=== PATIENT | female | born 1985 | race African-American/Black ===

== ENCOUNTER 2024-03-09 11:43 | Emergency (ER) | payer OTHER, SELFPAY ==
[2024-03-09 12:01] VITALS: BP 135/75; PULSE 76; RESP 20; TEMP 36.4; O2SAT 100; BMI 34.4
[2024-03-09 12:08] VITALS: PULSE 85; O2SAT 97
[2024-03-09 12:09] VITALS: BP 114/66; PULSE 84; O2SAT 98
[2024-03-09 12:30] VITALS: BP 110/61; PULSE 86; O2SAT 98
--- NOTE | 2024-03-09 12:50 | PC.NURSE ---
Patient here in department for allergic reaction to supplements that she took this morning, patient has them in her bag for provider review. Patients respirations are even and unlabored, lung sounds are clear on auscultation, patient reports they have some scratchiness in their throat
[2024-03-09 13:00] VITALS: BP 116/75; PULSE 85; O2SAT 98
[2024-03-09 13:30] VITALS: BP 116/73; PULSE 79; O2SAT 98
--- NOTE | 2024-03-09 14:01 | ED_ITS ---
HPI - Allergic Reaction General Chief complaint: Allergic Reaction Stated complaint: allergic reaction unknown source Time Seen by Provider: 03/09/24 13:40 Source: patient Mode of arrival: Ambulatory History of Present Illness HPI narrative: Patient here for hives on the face arms itching to the back legs and chest. It has now resolved. Patient started a new dietary supplement for weight loss this morning. She went to work and at 9:00 a.m. in the morning today she walked into work and felt chest tightness throat tightness hives itching on the face arms legs back and [place] 50 mg of Benad[place] and sent here. Symptoms now have resolved. Mother at bedside. Never had any previous allergies. I informed her to stop taking these supplements. This is likely the source of allergy reaction this morning. Related Data Previous Rx's Medication Instructions Recorded diphenhydramine HCl 25 mg capsule 25 mg PO Q6H PRN allergic reaction 03/09/24 (Benadryl) #20 caps famotidine 20 mg tablet 20 mg PO BID #14 tabs 03/09/24 methylprednisolone 4 mg tablets in See Rx Instructions PO .COMPLEX 03/09/24 a dose pack (Medrol (Jozef)) #21 ea Allergies Allergy/AdvReac Type Severity Reaction Status Date / Time amoxicillin Allergy Hives Verified 03/09/24 12:07 Review of Systems Review of Systems Narrative: GENERAL: Negative chills, fatigue, malaise, fever, sweats. HEENT: Negative sinus pain, ear pain, sore throat RESPIRATORY: Negative dyspnea, cough CARDIOVASCULAR: Negative chest pain, palpitations GASTROINTESTINAL: Negative nausea, vomiting, abdominal pain : Negative dysuria, frequency, hematuria MUSCULOSKELETAL: Negative muscle or bony pain SKIN: Positive rash, negative skin lesions NEUROLOGIC: Negative weakness, numbness ROS Unobtainable: All systems reviewed & are unremarkable except as noted in HPI and below Patient History Social History Smoking Status: Never smoker Smoking Status: Never smoker Exam Narrative Exam Narrative: GENERAL: in no distress, not toxic not dyspneic HEAD: Normocephalic. EYES: Pupils equal round ENT: Mucous membranes moist. No tongue elevation no lip swelling no drooling no posterior pharynx edema NECK: Trachea midline. No stridor CARDIOVASCULAR: Regular rate and rhythm RESPIRATORY: Clear to auscultation. Breath sounds equal bilaterally. No wheezes, rales, or rhonchi. Speaking full sentences easily GASTROINTESTINAL: Abdomen soft, non-tender EXTREMITIES: No gross deformities. BACK: No flank tenderness. NEURO: AOx4. SKIN: Warm and dry, no hives no rash PSYCH: Not anxious, is cooperative Initial Vital Signs Initial Vital Signs: Vital Signs Temperature 97.5 F L 03/09/24 12:01 Pulse Rate 76 03/09/24 12:01 Respiratory Rate 20 03/09/24 12:01 Blood Pressure 135/75 03/09/24 12:01 Pulse Oximetry 100 03/09/24 12:01 Oxygen Delivery Method Room Air 03/09/24 12:01 Course Vital Signs Vital signs: Vital Signs - 8 hr 03/09/24 12:01 03/09/24 12:08 03/09/24 12:09 Temperature 97.5 F L Pulse Rate 76 85 Respiratory Rate 20 Blood Pressure 135/75 114/66 Pulse Oximetry 100 97 Oxygen Delivery Method Room Air 03/09/24 12:09 Temperature Pulse Rate 84 Respiratory Rate Blood Pressure Pulse Oximetry 98 Oxygen Delivery Method Room Air MDM - Allergic Reaction [facility] Narrative Medical decision making narrative: Patient here for hives on the face arms itching to the back legs and chest. It has now resolved. Patient started a new dietary supplement for weight loss this morning. She went to work and at 9:00 a.m. in the morning today she walked into work and felt chest tightness throat tightness hives itching on the face arms legs back and chest. [place] gave her 50 mg of Benadryl and sent here. Symptoms now have resolved. Mother at bedside. Never had any previous allergies. I informed her to stop taking these supplements. This is likely the source of allergy reaction this morning. After history and exam, exam is reassuring. Symptoms have resolved. No further workup indicated. [facility] Medical records reviewed: No recent visit for this complaint Differential considered: Includes but not limited to urticaria allergic reaction medication allergy Treatments: None indicated symptoms have resolved Re-evaluations: Updated patient results. She agrees to discontinue the dietary supplements. Return precautions reviewed. She desires discharge home Discussion: Appropriate for discharge home exam is reassuring. No medications indicated here. Patient at baseline. Benadryl resolved her symptoms [place]. Return precautions reviewed. Prescriptions provided for just in case symptoms returned. Work note provided. She desires discharge home. Diagnosis: Allergic reaction Discharge Plan Departure Patient Disposition: Home Clinical Impression: Allergic reaction Qualifiers: Encounter type: initial encounter Qualified Code(s): T78.40XA - Allergy, unspecified, initial encounter Instructions: DI for Hives, DI for Adverse Drug Reaction -- Allergic Activity Restrictions/Additional Instructions: Please discontinue the dietary supplement/products. Those are the likely sources of the allergic reaction he had this morning. Prescriptions have been provided for you in case symptoms returned. [place] in a [place] for re-evaluation. Work note has been provided for you. Prescriptions: New famotidine 20 mg tablet 20 mg PO BID Qty: 14 0RF methylprednisolone [Medrol (Jozef)] 4 mg tablets,dose pack See Rx Instructions .ROUTE .COMPLEX Qty: 21 0RF Rx Instructions: orally per package directions diphenhydramine HCl [Benadryl] 25 mg capsule 25 mg PO Q6H PRN (Reason: allergic reaction) Qty: 20 0RF Referrals: ProviderLaquita [Primary Care Provider] - Stand Alone Forms: Patient Portal/API/Survey, Work Release Note
== END 2024-03-09 14:12 | disposition home or self-care (01) ==
PROVIDERS: Emergency Provider Emergency Medicine
DX: L50.9 Urticaria, unspecified (principal); T78.40XA Allergy, unspecified, initial encounter
CPT/HCPCS: 99281